=== PATIENT | female | born 1965 | race Caucasian/White ===

== ENCOUNTER 2019-09-08 08:21 | Day surgery (SDC) | payer BC ==
[2019-09-07 14:02] VITALS: BMI 22.4
[2019-09-08 10:09] VITALS: TEMP 97.8
[2019-09-08 12:53] VITALS: BP 123/68; PULSE 60
--- NOTE | 2019-09-09 16:22 | PATH ---
Surgical Pathology Report Patient Name: ALTAGRACIA ALLEN [facility]. Rec. #: [id number] /Age/Gender: 1965 (Age: 53) / F Account: [id number] Location: [facility]-ENDOSCOPY Taken: 09/08/2019 Received: 09/08/2019 Reported: 09/09/2019 Physicians: Courtney Hummel M.D. Specimen(s) Received A: SIGMOID POLYPS B: RECTUM Clinical History History of colon polyp Postoperative diagnosis: Colon polyps Final Diagnosis A. SIGMOID COLON POLYPS, POLYPECTOMY: TUBULAR ADENOMA, TWO FRAGMENTS. B. RECTUM, BIOPSY: COLONIC MUCOSA WITH SURFACE HYPERPLASTIC CHANGE. NO HISTOLOGIC EVIDENCE OF ACTIVE INFLAMMATION. Electronically Signed Isac Herbert M.D. Gross Description A. Received in formalin, labeled "biopsy sigmoid polyps" are 2 tinoco, irregular portions of soft tissue measuring 0.3 and 0.4 cm. in greatest dimension. The specimens are submitted in toto in one cassette. B. Received in formalin, labeled "biopsy rectum" is a tinoco, irregular portion of soft tissue measuring 0.3 cm. in greatest dimension. The specimen is submitted in toto in one cassette. DL/09/08/2019 saudi09/08/2019
== END 2019-09-08 10:30 | disposition home or self-care (01) ==
LOC: JASU-ENDO 08:21
PROVIDERS: ATTEND Internal Medicine Gastroenterology
PROC: 0DBN8ZX Excision of Sigmoid Colon, Via Natural or Artificial Opening Endoscopic, Diagnostic (ICD-10-PCS; 2019-09-08)
PROC: 0DBP8ZX Excision of Rectum, Via Natural or Artificial Opening Endoscopic, Diagnostic (ICD-10-PCS; principal; 2019-09-08 08:00)
DX: Z86.010 Personal history of colon polyps (principal); D12.5 Benign neoplasm of sigmoid colon; K62.1 Rectal polyp

== ENCOUNTER 2022-03-06 20:31 | Inpatient (IN) | payer BC ==
[2022-03-06 20:47] VITALS: BMI 25.7
[2022-03-06] MEDS ORDERED: ONDANSETRON 4 MG/2 ML VIAL IVPUSH ONE (21:14)
[2022-03-06] MEDS ORDERED: ACETAMINOPHEN 1000 MG/100 ML BAG IVPB ONE (21:14)
[2022-03-06] MEDS ORDERED: SODIUM CHLORIDE 0.9% 500 ML INFUS.BAG IV ONE (21:14)
[2022-03-06] MEDS ORDERED: FAMOTIDINE 20 MG/50 ML IVPB 20 MG/50 ML MG IVPB ONE ×2 (21:14→21:21)
[2022-03-06] MEDS ORDERED: ACETAMINOPHEN INJECTION 100 ML IVPB ONE (21:21)
[2022-03-06] MEDS ORDERED: ONDANSETRON 4 MG/2 ML VIAL ONE (21:21)
[2022-03-06 21:50] LABS: BASO % 0.2 % (0-2.0); EOS % 0.1 % (0-4.5); HEMATOCRIT 40.1 % (32.4-45.2); HEMOGLOBIN 13.2 GM/dL (10.7-15.3); LYMPH % 7.6 % (8-40); MCH 31.2 pg (25.7-33.7); MEAN CELL VOLUME 94.7 fl (80-96); MEAN PLT VOLUME 9.3 fl (7.5-11.1); MONO % 6.8 % (3.8-10.2); NEUT % 85.3 % (42.8-82.8); PLATELET COUNT 219 10^3/uL (134-434); RBC 4.23 M/mm3 (3.60-5.2); RDW 13.3 % (11.6-15.6); WHITE BLOOD COUNT 19.9 K/mm3 (4.0-10.0)
[2022-03-06 22:12] LABS: BLOOD UREA NITROGEN 23.2 mg/dL (7-18); CALCIUM 10.2 mg/dL (8.5-10.1); MAGNESIUM 1.8 mg/dL (1.8-2.4)
[2022-03-06 22:16] LABS: BILIRUBIN,TOTAL 0.3 mg/dL (0.2-1); TOT PROT 7.3 g/dl (6.4-8.2)
[2022-03-07 02:16] VITALS: RESP 18
[2022-03-07 05:05] LABS: URINE APPEARANCE CLOUDY; URINE BILIRUBIN NEGATIVE (NEGATIVE); URINE COLOR YELLOW; URINE GLUCOSE (UA) 3+ (NEGATIVE); URINE KETONE 4+ (NEGATIVE); URINE LEUK ESTERASE NEGATIVE (NEGATIVE); URINE NITRITE NEGATIVE (NEGATIVE); URINE PROTEIN TRACE (NEGATIVE); URINE UROBILINOGEN 0.2 mg/dL (0.2-1.0)
[2022-03-07] MEDS ORDERED: CEFTRIAXONE 1 GM in DEXTROSE 5%-WATER - 50 ML IVPB ONE (05:33)
[2022-03-07] MEDS ORDERED: CEFTRIAXONE 1 GM/50 ML BAG ONE (05:42)
[2022-03-07 06:39] LABS: BASO % 0.4 % (0-2.0); EOS % 0.3 % (0-4.5); HEMOGLOBIN 13.9 GM/dL (10.7-15.3); LYMPH % 17.6 % (8-40); MCH 31.5 pg (25.7-33.7); MEAN CELL VOLUME 95.5 fl (80-96); MEAN PLT VOLUME 9.8 fl (7.5-11.1); MONO % 7.1 % (3.8-10.2); NEUT % 74.6 % (42.8-82.8); PLATELET COUNT 226 10^3/uL (134-434); RDW 13.5 % (11.6-15.6); WHITE BLOOD COUNT 13.4 K/mm3 (4.0-10.0)
[2022-03-07 06:50] LABS: CALCIUM 9.5 mg/dL (8.5-10.1)
[2022-03-07 06:51] LABS: ALBUMIN 3.9 g/dl (3.4-5.0); MAGNESIUM 2.1 mg/dL (1.8-2.4)
[2022-03-07 06:53] LABS: CREATININE 0.7 mg/dL (0.55-1.3)
[2022-03-07 06:55] LABS: BILIRUBIN,TOTAL 0.5 mg/dL (0.2-1); TOT PROT 7.4 g/dl (6.4-8.2)
[2022-03-07] MEDS: INSULIN SLIDING SCALE (NOVOLOG) 1 VIAL SQ SCH ×3 (07:35→17:48)
[2022-03-07] MEDS ORDERED: ENOXAPARIN NA (PORCINE) 40 MG/0.4 ML DISP.SYRIN SQ ONE (08:22)
[2022-03-07] MEDS ORDERED: ENOXAPARIN NA (PORCINE) 40 MG/0.4 ML DISP.SYRIN SQ SCH (10:00)
[2022-03-07 22:47] VITALS: BP 142/78; PULSE 78; TEMP 98
== END 2022-03-07 23:15 | disposition left against medical advice (07) | DRG 313 ==
LOC: JER 20:31 → JERBED 03-07 03:18 → OBSVTOIN 03-07 05:38
PROVIDERS: ADMIT Internal Medicine; ATTEND Internal Medicine
DX: R07.9 Chest pain, unspecified (principal); D72.829 Elevated white blood cell count, unspecified; K21.9 Gastro-esophageal reflux disease without esophagitis
CPT/HCPCS: 36415; 71045-TC-FY; 71275-TC; 74177-TC; 80053; 80061; 81003; 82378; 82962; 83036; 83605; 83690; 83735; 84100; 84443; 84484; 85025; 87040; 87086; 93005; 93010; 93306-TC; 99285-25; C9803-CS; G0378; Q9967; U0003; U0005